=== PATIENT | male | born 1975 | race Caucasian/White ===

== ENCOUNTER 2021-12-16 12:46 | Emergency (ER) | payer OTHER ==
[2021-12-16 13:39] LABS: HEMOGLOBIN 13.7 gm/dl (14.0-17.5); RED BLOOD COUNT 4.95 M/UL (4.20-5.50); WHITE BLOOD COUNT 6.5 K/UL (4.5-11.0)
[2021-12-16 14:22] LABS: BUN/CREATININE RATIO 11 (0-10)
[2021-12-16] MEDS ORDERED: PAMELOR75 MG PO (18:40)
[2021-12-16] MEDS ORDERED: ZESTORETIC 10-1 EACH PO (18:40)
[2021-12-16] MEDS ORDERED: ROPINIROLE HC0.25 MG PO (18:40)
[2021-12-16] MEDS ORDERED: PROTONIX 40 MG40 M1 PO (18:40)
[2021-12-16] MEDS ORDERED: LEXAPRO10 MG PO (18:40)
[2021-12-16] MEDS ORDERED: PLAVIX75 MG PO (18:41)
[2021-12-16] MEDS ORDERED: ASPIRIN EC81 MG PO (18:41)
== END 2021-12-16 19:06 | disposition home or self-care (01) ==
LOC: ER1 12:46
PROVIDERS: Nurse Practitioner
DX: I74.5 Embolism and thrombosis of iliac artery (principal); R10.13 Epigastric pain; F17.210 Nicotine dependence, cigarettes, uncomplicated; Z76.0 Encounter for issue of repeat prescription
CPT/HCPCS: 71045; 80053; 81001; 82150; 82550; 82553; 83874; 84484; 85025; 93005; 99284; Q9967

== ENCOUNTER 2022-02-10 18:36 | Emergency (ER) | payer OTHER ==
[~2022-02-10 18:36] MED LIST: ASPIRIN EC81 MG PO; LEXAPRO10 MG PO; PAMELOR75 MG PO; PLAVIX75 MG PO; PROTONIX 40 MG40 M1 PO; ROPINIROLE HC0.25 MG PO; ZESTORETIC 10-1 EACH PO
[2022-02-10] MEDS ORDERED: ELIQUIS5 M1 PO (21:48)
[2022-02-10] MEDS ORDERED: CEPHALEXIN500 M1 PO (21:48)
[2022-02-10] MEDS ORDERED: TYLENOL EXTRA500 MG PO (22:16)
== END 2022-02-10 22:20 | disposition home or self-care (01) ==
LOC: ER1 18:36
DX: S09.90XA Unspecified injury of head, initial encounter (principal); S40.011A Contusion of right shoulder, initial encounter; S20.211A Contusion of right front wall of thorax, initial encounter; I10 Essential (primary) hypertension; M79.89 Other specified soft tissue disorders; Z79.82 Long term (current) use of aspirin; V29.3XXA Motorcycle rider (driver) (passenger) injured in unspecified nontraffic accident, initial encounter; Y93.9 Activity, unspecified; Y92.410 Unspecified street and highway as the place of occurrence of the external cause
CPT/HCPCS: 70450; 71111; 73030; 73110; 85379; 99284

== ENCOUNTER → 2022-03-30 | Outpatient (CLI) | payer OTHER ==
[~2022-03-30] MED LIST changes: +CEPHALEXIN500 M1 PO; +ELIQUIS5 M1 PO; +TYLENOL EXTRA500 MG PO
== END ==
LOC: KOH-I 08:04
DX: M51.16 Intervertebral disc disorders with radiculopathy, lumbar region (principal)
CPT/HCPCS: 72110

== ENCOUNTER → 2022-06-12 | Outpatient (CLI) | payer OTHER | LOC: KOH-I 10:30 | DX: M51.16 Intervertebral disc disorders with radiculopathy, lumbar region (principal) | CPT/HCPCS: 72148 ==